=== PATIENT | female | born 1970 | race Two or more races ===

== ENCOUNTER 2025-03-08 15:30 | Outpatient (RCR) | payer MEDICAID, SELFPAY ==
--- NOTE | 2025-02-28 13:39 | PTNOTE_ITS ---
PT OP Initial Eval Patient Information Outpatient Physical Therapy Treatment Date: 02/28/25 Visit Reasons: Muscle spasm of back Medical Diagnosis: M62.830 Treatment Dx #1: LBP with radiculopathy Start of Care: 02/28/25 Date of Onset: October 2024 Smoking Status Smoking Status: Never smoker Initial Assessment Subjective: Pt is 54 yr old belarusian speaking female who reports onset of LBP and pain that runs down B LE's worse on the L. Increased pain with bending, stepping and prolonged sitting and standing. PMH: x3 Imaging: none Pt goal: to get rid of the pain in order to walk further Objective: Trunk ArOM: ? B SB 50% of normal with pain ? Extension: 20% with pain around L4-5, L5-S1 ? Flexion: 10 from floor with LBP ? B rotation: 60% with pain ? R SLR ROM: 85 deg. L SLR: 80 deg with posterior knee neural tension, LBP ? TTP: moderate paraspinals L5-S1 ? Neuro: L SLR: positive Assessment: ? Pt presents with trunk flexion sensitivity and overlying myofascial pain ? and TTP around lower L/S consistent with lumbar disc bulge(s) with radiculopathy and possible piriformis syndrome. Pt requires skilled therapy in order to decrease ? pain and improve sitting/standing tolerance and has fair rehab potential. Eval ?followed by HEP printout. Pt would benefit from diagnostic imaging of the lumbar spine such as Xray, MRI. Short Term and Alf Goals 1. Ind with HEP ? 2. Improved sitting/standing tolerance to 30 minutes with <=4/10 LBP ? 3. Decreased lower paraspinal TTP from mod to min 4. Improved HH chore tolerance to at least 30 minutes with <=3/10 LBP and no ?increase in LE ssx ? Treatment Plan ? 1. Manual therapy ? 2. Therex ? 3. Modalities as indicated, moist heat, ice, estim, mechanical traction Frequency and Duration: 2x a week for 4 trial Rx's. If progressing continue up to 12. Certification Dates: 02/28/25 to 05/30/25 Procedure Charges OP PT Eval Mod Complex 30 minutes: Yes
--- NOTE | 2025-03-06 17:43 | PT.ODAYNRPT ---
PT Outpatient Daily Note OP Daily Note Outpatient Physical Therapy Treatment Date: 03/06/25 Visit Reasons: Muscle spasm of back Subjective: Same as time of evaluation Objective: See F/S for therex MT: STM L/S with flexbar x5' Assessment: Good demo of prone extension with low pain in L/S Plan: Continue per POC Length of Time (minutes) of Treatment: 30 Minutes Procedure Charges Therapeutic Exercise 30 minutes: Yes
--- NOTE | 2025-03-08 17:57 | PT.ODAYNRPT ---
PT Outpatient Daily Note OP Daily Note Outpatient Physical Therapy Treatment Date: 03/08/25 Visit Reasons: Muscle spasm of back Subjective: Same as time of evaluation Objective: See F/S for therex MT: STM L/S with flexbar x5' Assessment: Good demo of prone extension with low pain in L/S Plan: Continue per POC Length of Time (minutes) of Treatment: 30 Minutes Procedure Charges Therapeutic Exercise 30 minutes: Yes
== END 2025-03-15 23:59 | disposition home or self-care (01) ==
LOC: CPTX 15:30
PROVIDERS: PCP Physician Assistant; Referring Provider Physician Assistant; Visit Provider Physician Assistant
DX: M54.16 Radiculopathy, lumbar region (principal); M62.830 Muscle spasm of back
CPT/HCPCS: 97110; 97162

== ENCOUNTER → 2025-03-20 | Outpatient (CLI) | payer MEDICAID, SELFPAY ==
--- NOTE | 2025-03-20 17:09 | XR_ITS ---
Examination: Bilateral AP knee single view TECHNIQUE: AP standing bilateral knee single view Exam date and time: March 20, 2025, 1718 hours INDICATIONS: Bilateral knee pain 5 months. FINDINGS: Mild osteoarthritis medial and lateral joint spaces No fractures or dislocations. Faint meniscus calcification IMPRESSION: Mild osteoarthritis medial and lateral joint spaces
== END | disposition home or self-care (01) ==
LOC: CDIM 17:06
PROVIDERS: PCP Physician Assistant; Referring Provider Physician Assistant; Visit Provider Physician Assistant
DX: M17.0 Bilateral primary osteoarthritis of knee (principal)
CPT/HCPCS: 73565

== ENCOUNTER 2025-04-12 15:30 | Outpatient (RCR) | payer MEDICAID, SELFPAY ==
--- NOTE | 2025-03-16 17:37 | PT.ODAYNRPT ---
PT Outpatient Daily Note OP Daily Note Outpatient Physical Therapy Treatment Date: 03/16/25 Visit Reasons: Muscle spasm of back Subjective: Continued LBP Objective: See F/S for therex MT: STM L/S with flexbar x5' Assessment: Good demo of prone extension with low pain in L/S Plan: Continue per POC Length of Time (minutes) of Treatment: 30 Minutes Procedure Charges Therapeutic Exercise 30 minutes: Yes
--- NOTE | 2025-03-27 16:56 | PT.ODAYNRPT ---
PT Outpatient Daily Note OP Daily Note Outpatient Physical Therapy Treatment Date: 03/27/25 Visit Reasons: Muscle spasm of back Subjective: Continued LBP and lateral hip and groin pain that limits laying on L side. Objective: See F/S for therex Mechanical traction L/S x7' at 45 lbs Assessment: Good demo of prone extension with low pain in L/S but limited progress with goals due to L lateral hip that increases with trunk sidebending to that side and groin pain. PT recommends further diagnostic imaging of L/S and lateral hip. Plan: Continue per POC Length of Time (minutes) of Treatment: 30 Minutes Procedure Charges Therapeutic Exercise 30 minutes: Yes
--- NOTE | 2025-04-03 17:47 | PT.ODAYNRPT ---
PT Outpatient Daily Note OP Daily Note Outpatient Physical Therapy Treatment Date: 04/03/25 Visit Reasons: Muscle spasm of back Subjective: Continued LBP and lateral hip and groin pain that limits laying on L side. Objective: See F/S for therex MT: STM L/S x7' Assessment: Pt has trigger point in L/S around L4-5 on L side that sends pain down the LE with manual pressure. Good demo of prone extension with low pain in L/S but limited progress with goals due to L lateral hip that increases with trunk sidebending to that side and groin pain. PT recommends further diagnostic imaging of L/S and lateral hip. Pt stoop bends while doing HH chores and can correct with cues but this may be contributing to LBP. Plan: Continue per POC Length of Time (minutes) of Treatment: 30 Minutes Procedure Charges Therapeutic Exercise 30 minutes: Yes
--- NOTE | 2025-04-12 16:02 | PT.ODAYNRPT ---
PT Outpatient Daily Note OP Daily Note Outpatient Physical Therapy Treatment Date: 04/12/25 Visit Reasons: Muscle spasm of back Subjective: Pt c/o pain down the L LE and glute and groin area. Objective: Please see flow sheet for ther ex list. Assessment: Pt instructed on repeated lumbar extension exercise, encouraged to perform for HEP. Plan: Continue with pOC. Length of Time (minutes) of Treatment: 30 Minutes Procedure Charges Therapeutic Exercise 30 minutes: Yes
== END 2025-04-15 23:59 | disposition home or self-care (01) ==
LOC: CPTX 15:30
PROVIDERS: PCP Physician Assistant; Referring Provider Physician Assistant; Visit Provider Physician Assistant
DX: M54.16 Radiculopathy, lumbar region (principal); M62.830 Muscle spasm of back
CPT/HCPCS: 97110

== ENCOUNTER 2025-05-15 16:30 | Outpatient (RCR) | payer MEDICAID, SELFPAY ==
--- NOTE | 2025-04-18 17:49 | PT.ODAYNRPT ---
PT Outpatient Daily Note OP Daily Note Outpatient Physical Therapy Treatment Date: 04/18/25 Visit Reasons: Muscle spasm of the back Subjective: Pt points to the L lateral hip as site of pain Objective: See F/S for therex TTP: moderate of L greater troch region MT: STM L lateral hip x5' Assessment: L lateral hip is TTP consistent with bursitis Plan: Continue per POC Length of Time (minutes) of Treatment: 30 Minutes Procedure Charges Therapeutic Exercise 30 minutes: Yes
--- NOTE | 2025-05-08 17:45 | PT.ODAYNRPT ---
PT Outpatient Daily Note OP Daily Note Outpatient Physical Therapy Treatment Date: 05/08/25 Visit Reasons: Muscle spasm of the back Subjective: Pt points to the L lateral hip as site of pain but it's less than previous visits Objective: See F/S for therex MT: [facility] L/S x5' Assessment: L lateral hip is TTP consistent with bursitis Plan: Continue per POC Length of Time (minutes) of Treatment: 30 Minutes Procedure Charges Therapeutic Exercise 30 minutes: Yes
--- NOTE | 2025-05-15 17:28 | PT.ODS1RPT ---
PT OP Progress/Discharge Note Date of Service: 05/15/25 Progress Note/DC Note Progress Note/Discharge Note: DC Note Patient Information Visit Reasons: Muscle spasm of the back Service Continue Service or Discharge: Discharge Discharge Date: 05/15/25 Status Subjective: Less LBP and L lateral hip pain since starting therapy and it hasn't been hurting lately. She can stand all day and do HH chores all day. Objective: See F/S for therex MT: STM L/S x5' Trunk AROM: FB: 6 from floor Extension: 50% of full TTP: min to none of L/S Assessment: Pt has attended 8/ visits with good progress to meet goals. Pt has improved standing and HH chore tolerance to all day to meet those goals. Pt has decreased TTP of L/S and L lateral hip from min to none to meet that goal. L lateral hip is minimally TTP consistent with bursitis and she is managing pain with HEP. Plan: D/C with HEP Procedure Charges Therapeutic Exercise 30 minutes: Yes
== END 2025-05-15 23:59 | disposition home or self-care (01) ==
LOC: CPTX 16:30
PROVIDERS: PCP Physician Assistant; Referring Provider Physician Assistant; Visit Provider Physician Assistant
DX: M54.16 Radiculopathy, lumbar region (principal); M62.830 Muscle spasm of back
CPT/HCPCS: 97110